=== PATIENT | female | born 1945 | race Caucasian/White ===

== ENCOUNTER 2022-06-21 15:49 | Emergency (ER) | payer OTHER ==
[~2022-06-21] VITALS: Ht 162.6 cm; Wt 72.7 kg
[2022-06-21 15:49] VITALS: BP 175/83
== END 2022-06-21 18:48 | disposition left against medical advice (07) ==
LOC: ER 15:49 → EDBD 15:49 → ER 18:48
DX: R10.9 Unspecified abdominal pain (principal); Z53.21 Procedure and treatment not carried out due to patient leaving prior to being seen by health care provider